=== PATIENT | female | born 1990 | race Caucasian/White ===

== ENCOUNTER 2017-04-18 14:15 | Emergency (ER) | payer OTHER ==
[~2017-04-18] VITALS: Ht 154.9 cm; Wt 59.9 kg
[2017-04-18 14:39] VITALS: BP 113/71
== END 2017-04-18 15:45 | disposition home or self-care (01) ==
LOC: ED 14:15
DX: R51 Headache (principal); H53.8 Other visual disturbances; I10 Essential (primary) hypertension